=== PATIENT | male | born 2000 | race Two or more races ===

== ENCOUNTER 2022-05-30 11:07 | Emergency (ER) | payer OTHER ==
[~2022-05-30] VITALS: Ht 167.6 cm; Wt 76.7 kg
[2022-05-30] MEDS ORDERED: ZOVIRAX400 MG PO (12:53)
== END 2022-05-30 12:58 | disposition home or self-care (01) ==
LOC: ER 11:07
DX: A60.9 Anogenital herpesviral infection, unspecified (principal); Z88.6 Allergy status to analgesic agent